=== PATIENT | male | born 1990 | race Caucasian/White ===

== ENCOUNTER 2019-06-21 12:26 | Emergency (ER) | payer OTHER ==
[~2019-06-21] VITALS: Ht 185.4 cm; Wt 74.4 kg
[~2019-06-21 12:26] MED LIST: AUGMENTIN 875875 MG PO; FLOMAX0.4 MG PO; HUMALOG100 UNIT/1 SUBQ; INSULIN SYRING1 EA12 MC; LANTUS100 UNIT/M SUBQ; NOVOLOG100 UNIT/M SUBQ; PROZAC20 MG PO; XANAX 0.5 MG0.5 MG PO
[2019-06-21 12:56] LABS: HEMATOCRIT 45.6 % (42.0-52.0); HEMOGLOBIN 15.7 gm/dL (14.0-18.0); MCH 29.8 pg (26.0-34.0); MCHC 34.3 g/dL (28.0-37.0); MCV 86.7 fL (80.0-100.0); MPV 8.6 fl. (7.2-11.1); NUCLEATED RBCS 0 /100WBC; PLATELET COUNT* 307 thou/uL (150-400); RBC 5.26 mil/uL (4.50-6.00); RDW-CV 12.7 % (10.5-14.5); WBC 16.5 thou/uL (4.0-11.0)
[2019-06-21 13:04] LABS: CALCIUM 9.7 mg/dL (8.5-10.1); CREATININE 1.3 mg/dL (0.6-1.3); POTASSIUM 3.8 mmol/L (3.5-5.1)
[2019-06-21 13:08] LABS: ALBUMIN 4.7 g/dL (3.4-5.0); TOTAL BILIRUBIN 1.5 mg/dL (<0.1-1.0); TOTAL PROTEIN 8.4 g/dL (6.4-8.2)
[2019-06-21 13:37] LABS: BE -0.5 mmol/L (-2 to +3); PCO2 VENOUS 52.1 mmHg (41.0-51.0); PO2 VENOUS 40.8 mmHg (35.0-45.0)
[2019-06-21 13:40] LABS: URINE BLOOD 2+ (Negative); URINE CLARITY CLEAR; URINE COLOR YELLOW; URINE GLUCOSE-RANDOM 3+ (Negative); URINE KETONES 2+ (Negative); URINE LEUKOCYTES-REFLEX NEGATIVE (Negative); URINE NITRITE-REFLEX NEGATIVE (Negative); URINE PROTEIN NEGATIVE (Negative); URINE SPECIFIC GRAVITY 1.025 (1.005-1.030); URINE UROBILINOGEN 0.2 E.U./dl (0.2-1.0)
[2019-06-21 13:43] LABS: ICTOTEST (BILI CONFIRMATORY) Negative (Negative); URINE BILIRUBIN 1+ (Negative)
[2019-06-21 13:45] LABS: ABSOLUTE LYMPHOCYTES 0.7 thou/uL (0.8-5.3); ABSOLUTE MONOCYTES 0.2 thou/uL (0.0-1.2); ABSOLUTE NEUTROPHILS 15.7 thou/uL (1.6-8.1); PLATELET ESTIMATE ADEQUATE
[2019-06-21 13:48] LABS: BACTERIA-REFLEX 1-9 Few /HPF (None Seen); CASTS None Seen /LPF (None Seen); CRYSTALS None Seen /LPF (None Seen); SQUAMOUS 0-3 Few /LPF (0-3); URINE RBC 0-2 Rare /HPF (0-2); URINE WBC-REFLEX 0-5 Rare /HPF (0-5)
[2019-06-21] MEDS ORDERED: ZOFRAN ODT4 MG DISSOLVE (13:58)
[2019-06-21] MEDS ORDERED: KEFLEX500 M1 PO (13:58)
[2019-06-21 14:07] VITALS: BP 116/70
--- NOTE | 2019-06-21 15:42 | EKG ---
[place] [address] ELECTROCARDIOGRAM REPORT Name: YENNI PHILLIPS Room: [facility]#: [id number] Admission: 06/21/19 Attend Phys: Discharge: 06/21/19 Date of : 86 Report #: [id number] THIS REPORT FOR: //name// [facility] ED Test Date: 2019-06-21 Test Time: 12:40:37 Pat Name: YENNI PHILLIPS Department: Room: Gender: M Corporate Events Director: JEN : 1990 Requested By: Hemanth Clayton Order Number: [id number] MD: Ricardo Hood Measurements Intervals [place] Rate: 79 P: 53 CA: 114 QRS: 80 QRSD: 98 T: 37 QT: 377 QTc: 433 Interpretive Statements Sinus rhythm Borderline short CA interval RSR' in V1 or V2, probably normal variant Compared to ECG 10/26/2016 18:08:52 T-wave abnormality no longer present Prolonged QT interval no longer present Electronically Signed On 06-21-2019 15:42:31 [employer] by Ricardo Hood [email or web address] <ELECTRONICALLY SIGNED> By: Ricardo Hood MD, [facility] 06/21/19 1542 1240 1240 Ricardo Hood MD, FAC /EPI
== END 2019-06-21 14:09 | disposition home or self-care (01) ==
LOC: M.ERS 12:26
PROVIDERS: Emergency Medicine Emergency Medical Services
DX: R11.10 Vomiting, unspecified (principal); E10.9 Type 1 diabetes mellitus without complications; F41.9 Anxiety disorder, unspecified; F32.9 Major depressive disorder, single episode, unspecified; Z79.4 Long term (current) use of insulin

== ENCOUNTER 2021-03-09 10:41 | Emergency (ER) | payer OTHER ==
[~2021-03-09] VITALS: Ht 188 cm; Wt 72.6 kg
[~2021-03-09 10:41] MED LIST changes: +KEFLEX500 M1 PO; +ZOFRAN ODT4 MG DISSOLVE
[2021-03-09] MEDS ORDERED: ZOLOFT20 MG/1 ML PO (10:56)
[2021-03-09 11:59] LABS: BE -4.3 mmol/L (-2 to +3); HEMATOCRIT 47.1 % (42.0-52.0); HEMOGLOBIN 15.9 gm/dL (14.0-18.0); MCH 29.2 pg (26.0-34.0); MCHC 33.8 g/dL (28.0-37.0); MCV 86.5 fL (80.0-100.0); MPV 8.4 fl. (7.2-11.1); NUCLEATED RBCS 0 /100WBC; PCO2 VENOUS 49.3 mmHg (41.0-51.0); PLATELET COUNT* 320 thou/uL (150-400); PO2 VENOUS 27.9 mmHg (35.0-45.0); RBC 5.44 mil/uL (4.50-6.00); RDW-CV 12.7 % (10.5-14.5); WBC 22.2 thou/uL (4.0-11.0)
[2021-03-09 12:08] LABS: CALCIUM 10.1 mg/dL (8.5-10.1); CREATININE 1.4 mg/dL (0.6-1.3); POTASSIUM 4.1 mmol/L (3.5-5.1)
[2021-03-09 12:12] LABS: ALBUMIN 4.9 g/dL (3.4-5.0); TOTAL BILIRUBIN 1.7 mg/dL (<0.1-1.0); TOTAL PROTEIN 8.6 g/dL (6.4-8.2)
[2021-03-09 12:52] LABS: ABSOLUTE LYMPHOCYTES 0.7 thou/uL (0.8-5.3); ABSOLUTE MONOCYTES 0.2 thou/uL (0.0-1.2); ABSOLUTE NEUTROPHILS 21.3 thou/uL (1.6-8.1); PLATELET ESTIMATE ADEQUATE
[2021-03-09 14:51] VITALS: BP 106/59
== END 2021-03-09 14:52 | disposition home or self-care (01) ==
LOC: M.ERS 10:41
PROVIDERS: Family Medicine
DX: E10.10 Type 1 diabetes mellitus with ketoacidosis without coma (principal); Z79.899 Other long term (current) drug therapy